=== PATIENT | male | born 1985 | race Caucasian/White ===

== ENCOUNTER 2018-04-08 09:45 | Emergency (ER) | payer BC ==
[2018-04-08 09:58] VITALS: BP 122/72
--- NOTE | 2018-04-08 10:26 | UC ---
Lower Extremity/Ankle HPI - HPI Summary HPI Summary: right 5th toe pain x 1 days stub his right 5th toe last night + pain, swelling and bruising of the toe - History of Current Complaint Chief Complaint: UCLowerExtremity Stated Complaint: RIGHT LITTLE TOE INJURY Time Seen by Provider: 04/08/18 09:59 Hx Obtained From: Patient Onset/Duration: Sudden Onset, Lasting Days - 1, Still Present Severity Initially: Moderate Severity Currently: Moderate Pain Intensity: 2 Aggravating Factor(s): Standing, Ambulation Alleviating Factor(s): Rest, Elevation, Ice Able to Bear Weight: Yes - Allergies/Home Medications Allergies/Adverse Reactions: Allergies Allergy/AdvReac Type Severity Reaction Status Date / Time No Known Allergies Allergy Verified 04/08/18 09:58 PMH/Surg Hx/FS Hx/Imm Hx Previously Healthy: Yes - Surgical History Surgical History: Yes Surgery Procedure, Year, and Place: facial cyst 2003 - Family History Known Family History: Positive: Hypertension - FATHER - Social History Alcohol Use: None Substance Use Type: None Smoking Status (MU): Never Smoked Tobacco Review of Systems All Other Systems Reviewed And Are Negative: Yes Constitutional: Positive: Negative Skin: Positive: Negative Eyes: Positive: Negative ENT: Positive: Negative Is Patient Immunocompromised?: No Physical Exam Triage Information Reviewed: Yes Appearance: Well-Appearing, No Pain Distress, Well-Nourished Vital Signs: Initial Vital Signs Temp 97.3 F 04/08/18 09:54 Pulse 72 04/08/18 09:54 Resp 16 04/08/18 09:54 BP 122/72 04/08/18 09:54 Pulse Ox 100 04/08/18 09:54 Vital Signs Reviewed: Yes Eye Exam: Normal Eyes: Positive: Conjunctiva Clear ENT: Positive: Normal ENT inspection, Hearing grossly normal, Pharynx normal Neck: Positive: Supple, Nontender, No Lymphadenopathy Respiratory: Positive: Chest non-tender, Lungs clear, Normal breath sounds Cardiovascular: Positive: RRR, No Murmur, Pulses Normal Musculoskeletal: Positive: Other: - right 5th toe : + swelling, bruising , + tenderness, Diagnostics - Laboratory Diagnostic Studies Completed/Ordered: xray right 5th toe : fracture middle phalangs Lower Extremity Course/Dx - Differential Dx/Diagnosis Provider Diagnosis: Fracture of fifth toe, right, closed Discharge - Sign-Out/Discharge Documenting (check all that apply): Patient Departure All imaging exams completed and their final reports reviewed: Yes - Discharge Plan Condition: Stable Disposition: HOME Patient Education Materials: Toe Fracture (ED) Referrals: Jeremias Aguirre MD [Primary Care Provider] - Additional Instructions: cont. with rest, ice, jerry tape , take Ibuprofen as needed for pain follow up with your pcp in one week - Billing Disposition and Condition Condition: STABLE Disposition: Home
== END 2018-04-08 10:40 | disposition home or self-care (01) ==
LOC: UCCORT 09:45
DX: S92.514A Nondisplaced fracture of proximal phalanx of right lesser toe(s), initial encounter for closed fracture (principal); W22.8XXA Striking against or struck by other objects, initial encounter; Y92.9 Unspecified place or not applicable
CPT/HCPCS: 99211; G0463